=== PATIENT | male | born 1960 | race Caucasian/White ===

== ENCOUNTER → 2017-07-22 | Outpatient (CLI) | payer BC ==
[~2017-07-22] MED LIST: AMPH20TA2 PO; FEXO1TAB46 PO; LEVO100T PO; LISI40TA PO; SIMV40TA4 PO; SITA1TAB27 PO; TERA5CAP PO
--- NOTE | 2017-07-22 11:52 | DIAGNOSTIC IMAGING REPORT ---
LEFT AXILLARY ULTRASOUND CLINICAL HISTORY: Left axilla SOFT TISSUE Mass, suspect LIPOMA COMPARISON STUDY: None. FINDINGS: At the patient's question palpable abnormality within the left axilla there is an 8 x 6.2 x 2.0 cm hypoechoic lesion. This has imaging characteristics most consistent with fat. No fluid collections or enlarged lymph nodes identified. IMPRESSION: An 8.0 x 6.2 x 2.0 cm hypoechoic lesion deep within the left axilla which favors a lipoma. However, if this is increasing size or is painful then consider follow-up surgical excision to exclude the less likely possibility of a liposarcoma. Electronically signed by: Sivakumar Manzano M.D. 07/22/2017 11:51 AM Dictated Date/Time: 07/22/2017 11:49 AM
--- NOTE | 2017-07-22 11:57 | DIAGNOSTIC IMAGING REPORT ---
THYROID ULTRASONOGRAPHY CLINICAL HISTORY: Thyroid nodule COMPARISON STUDY: February 13, 2015 FINDINGS: The right lobe of the thyroid measures 6.2 x 3.1 x 3.5 cm. There is a complex partially solid and cystic right lobe nodule measuring 49 x 33 x 28 mm. The left lobe of the thyroid measures 4.2 x 1.0 x 1.1 cm. There is a prominently solid circumscribed isoechoic lower pole left lobe nodule measuring 11 x 12 x 9 mm. There is a 4 mm mid pole nodule containing calcifications. The isthmus is thickened. There are bilateral isthmus nodules measuring 16 x 12 x 10 mm and 10 x 9 x 13 mm. IMPRESSION: Multinodular thyroid gland, similar in appearance to the preceding examination Electronically signed by: Rj Blancas M.D. 07/22/2017 11:55 AM Dictated Date/Time: 07/22/2017 11:52 AM
== END | disposition home or self-care (01) ==
LOC: C.ULTR 10:41
DX: R22.9 Localized swelling, mass and lump, unspecified (principal); E04.1 Nontoxic single thyroid nodule

== ENCOUNTER → 2017-12-14 | Outpatient (CLI) | payer OTHER ==
[~2017-12-14] MED LIST changes: +ATOR-24 PO; +FLUT50SP45; +HYDR25TA4 PO; +MULT-506 PO; +NAPR-1169 PO; -SIMV40TA4 PO; -SITA1TAB27 PO; +VNTHFA/IN INH
--- NOTE | 2017-12-14 12:23 | DIAGNOSTIC IMAGING REPORT ---
KUB HISTORY: CONSTIPATION COMPARISON: None. FINDINGS: The bowel gas pattern is non-obstructive. Mild to moderate stool volume is noted throughout the colon, notably within the cecum, ascending and descending portions. There is no organomegaly. No renal calculi. No ureteral calculi. No pneumoperitoneum or pneumatosis. No fracture. IMPRESSION: 1. Nonobstructive bowel gas pattern. 2. Mild to moderate stool volume is noted throughout the colon, notably within the cecum, ascending and descending portions. 3. No renal or ureteral stones. Electronically signed by: Sean Salazar M.D. 12/14/2017 12:22 PM Dictated Date/Time: 12/14/2017 12:20 PM
== END | disposition home or self-care (01) ==
LOC: C.RAD 11:51
DX: K59.00 Constipation, unspecified (principal)

== ENCOUNTER → 2017-12-28 | Day surgery (SDC) | payer OTHER ==
[~2017-12-28] MED LIST changes: +ACET-1047 PO; +ATROPINE SULFATE 0.1 MG/ML 5ML SYR IV PRN; +BUPIVACAINE/EPINEPHRINE 0.5% MPF 1:200,000 30 ML VIAL ONE; +EpHEDrine SULFATE INJ 50 MG/ML AMP IV PRN; +FENTANYL CITRATE INJ 50 MCG/1 ML 2 ML VIAL ONE; +GENTAMICIN SULFATE 40 MG/ML 2 ML VIAL ONE; +LACTATED RINGER'S 1000ML 1,000 ML IV SCH; +LIDOCAINE HCL 2% 2 ML VIAL (20MG/ML) ONE; +LIDOCAINE/EPINEPHRINE 1% 20 ML VIAL ONE; +MIDAZOLAM HCL 1 MG/ML 2ML VIAL ONE; +MoRPHine SULFATE 2 MG/ML CARP IV PRN; +ONDANSETRON INJ 2 MG/ML 2 ML VIAL ONE; +PROPOFOL IV EMULSION 10 MG/ML 20 ML VIAL IV ONE; +TRAMADOL HCL 50 MG TAB PO PRN; +VANCOMYCIN HCL 1000MG/20ML VIAL ONE
[2017-12-28 05:53] VITALS: BP 126/81; PULSE 55; TEMP 36.8; O2SAT 97
--- NOTE | 2017-12-28 06:48 | History & Physical Bridge Note ---
H&P Re-Evaluation Bridge Note: I have examined the patient, reviewed the History & Physical and in the interval since the performance of the History & Physical I have noted the following changes of clinical significance: No changes noted
--- NOTE | 2017-12-28 07:44 | [facility] Post Operative Brief Note ---
Immediate Operative Summary Operative Date Dec 28, 2017. Pre-Operative Diagnosis Nonhealing post op wound left axilla Post-Operative Diagnosis SAME Procedure(s) Performed EXCISION LEFT AXILLARY NON-HEALING WOUND AND CLOSURE OVER CALCIUM SULFATE BEADS Surgeon Dr Epps Fruit Grader Surgeon(s) Babatunde Quan PA-C Estimated Blood Loss 3 cc's Findings Consistent with Post-Op Diagnosis Specimens Skin / circatrial tissue Drains None Anesthesia Type MAC Complication(s) none
--- NOTE | 2017-12-28 07:58 | Discharge Instructions ---
Discharge Instructions Date of Service Dec 28, 2017. Visit Reason for Visit: Non Healing Surgical Wound Discharge Discharge Diagnosis / Problem: Non Healing Surgical Wound Discharge Goals Goal(s): Decrease discomfort Activity Recommendations Activity Limitations: resume your previous activity (in 24 hours) Anesthesia . Post Anesthesia Instructions: If you have had General Anesthesia or IV Sedation: * Do not drive today. * Resume driving when surgeon permits. * Do not make important decisions or sign legal documents today. * Call surgeon for: 1. Temperature elevations greater than 101 degrees F. 2. Uncontrollable pain. 3. Excessive bleeding. 4. Persistent nausea and vomiting. 5. Medication intolerance (nausea, vomiting or rash). * For nausea and vomiting use only clear liquids such as: tea, soda, bouillon until nausea subsides, then gradually increase diet as tolerated. * If you have any concerns or questions, call your surgeon's office. If physician is unavailable and it is an emergency, call 911 or go to the nearest emergency room. . Instructions / Follow-Up Instructions / Follow-Up 1. You may remove dressing in3 days and shower thereafter. No tub baths. 2.Keep your scheduled appointment with December @10:15 Diet Recommendations Recommended Home Diet: resume previous diet Procedures Procedures Performed: EXCISION LEFT AXILLARY NON-HEALING WOUND AND CLOSURE OVER CALCIUM SULFATE BEADS Pending Studies Studies pending at discharge: no Medical Emergencies . Who to Call and When: Medical Emergencies: If at any time you feel your situation is an emergency, please call 911 immediately. . Non-Emergent Contact Non-Emergency issues call your: Surgeon Call Non-Emergent contact if: you have a fever, your pain is not controlled, wound has increased drainage . . "Provider Documentation" section prepared by Jarrod Quan. .
[2017-12-28 08:00] VITALS: BP 135/74; PULSE 52; TEMP 36.4; O2SAT 98
[2017-12-28 08:30] VITALS: BP 166/82; PULSE 55; TEMP 36.5; O2SAT 98
--- NOTE | 2017-12-28 08:57 | Anesthesiology Progress Note ---
Anesthesia Post Op Note Date & Time Dec 28, 2017 at 08:57 Vital Signs Pain Intensity: 2 Vital Signs Past 12 Hours Date Time Temp Pulse Resp B/P (MAP) Pulse Ox O2 Delivery O2 Flow Rate FiO2 12/28/17 08:30 36.5 55 16 166/82 98 Room Air 12/28/17 08:00 36.4 52 16 135/74 98 Room Air 12/28/17 05:53 36.8 55 18 126/81 (96) 97 Room Air Notes Mental Status: alert / awake / arousable, participated in evaluation Pt Amnestic to Procedure: Yes Nausea / Vomiting: adequately controlled Pain: adequately controlled Airway Patency, RR, SpO2: stable & adequate BP & HR: stable & adequate Hydration State: stable & adequate Anesthetic Complications: no major complications apparent
--- NOTE | 2017-12-28 09:24 | OPERATIVE REPORT ---
DATE OF OPERATION: 12/28/2017 PREOPERATIVE DIAGNOSIS: Nonhealing left axillary wound with biofilm. POSTOPERATIVE DIAGNOSIS: Same. PROCEDURE: 1. Excision and debridement of left axillary wound with removal of cicatricial tissue. 2. Implantation of pharmaceutical grade calcium sulfate beads impregnated with antibiotics with closure. SURGEON: Misbah Epps MD. REMOTELY OPERATED VEHICLE: JUANCARLOS Askwe, (Mr. Quan was present for the entire case and placed the sutures at the conclusion of the case). ANESTHESIA: Local MAC. SPECIFICS OF PROCEDURE: This is a 57-year-old male who has multiple lipomas and underwent excision of a huge lipoma in his left axilla which was causing symptoms. Dr. Lrone Tenorio and I excised this mass on 10/25/2017. The patient developed a seroma and this drained spontaneously and the patient had an open wound in his axilla. This wound had a biofilm on it and was not healing. Given its location in his axilla it had difficulty to heel despite use of local antimicrobials. I saw him in the office last week and I felt that we should close this wound over some purified calcium sulfate beads impregnated with antibiotics which I thought would result in a closure with resolution of this wound. On 12/28/2017, the patient underwent excision of the cicatricial tissue. The resulting small defect was filled with antibiotic beads and was closed primarily. It measured 1.1 x 2.6 cm preoperatively and was closed postoperatively. He tolerated it well. DESCRIPTION OF THE PROCEDURE: The patient brought to operating room, laid in supine position. IV sedation was given. His left axilla was then prepped and draped in usual sterile fashion. After appropriate timeout had been called and prophylactic antibiotics were given, an elliptical incision was made in the anatomical lines of his axilla transversely. The cicatricial tissue was rather deep but we went down and the 1.1 x 2.6 cm wound was extended to approximately 2.5 cm x 4.5 cm. After removing all this, it was seen and this was healthy appearing tissue left behind. The cicatricial tissue and biofilm were delivered off the field. We achieved meticulous hemostasis. 500 mg of vancomycin were mixed with 320 mL of gentamicin and then mixed with 5 mL of Stimulant pharmaceutical grade calcium sulfate from [employer]. With this achieved, a putty like consistency was placed on a mold. When the beads had set, the mold was bent and the beads removed. These beads were used to completely fill the wound. A 3-0 Vicryl was used in an interrupted fashion to close the deeper subcutaneous tissues over these beads and then 3-0 nylon was used in a vertical mattress fashion to keep the skin edges together. He tolerated it well. Blood loss was negligible. I attest to the content of the Intraoperative Record and any orders documented therein. Any exception s are noted below.
== END | disposition home or self-care (01) ==
LOC: C.ACU 05:35
PROVIDERS: ATTEND Surgery
DX: T81.89XA Other complications of procedures, not elsewhere classified, initial encounter (principal); F90.9 Attention-deficit hyperactivity disorder, unspecified type; N40.0 Benign prostatic hyperplasia without lower urinary tract symptoms; F32.9 Major depressive disorder, single episode, unspecified; E78.5 Hyperlipidemia, unspecified; I10 Essential (primary) hypertension; E03.9 Hypothyroidism, unspecified; Z84.89 Family history of other specified conditions; Z83.49 Family history of other endocrine, nutritional and metabolic diseases; Z82.49 Family history of ischemic heart disease and other diseases of the circulatory system; F17.200 Nicotine dependence, unspecified, uncomplicated; Z91.018 Allergy to other foods; J45.909 Unspecified asthma, uncomplicated; Z98.52 Vasectomy status; E66.9 Obesity, unspecified; Y83.8 Other surgical procedures as the cause of abnormal reaction of the patient, or of later complication, without mention of misadventure at the time of the procedure